=== PATIENT | female | born 1970 | race Caucasian/White ===

== ENCOUNTER 2017-05-15 11:12 | Inpatient (IN) | payer OTHER ==
[~2017-05-15] VITALS: Ht 170.2 cm; Wt 71.4 kg
[~2017-05-15 11:12] MED LIST: ACEBUTCAFT PO; ALBU90OI; ALBU90OI INH; ALBU90OI61; AMLO10 PO; AMLO5 PO; AMOCLA875 PO; ANTOXYBENA AD; BENZ100A PO; Bactrim Ds Tab1 EACH PO; CEPH500 PO; CIPR250 PO; CIPR500 PO; CLON.1 PO; CLON.5 PO; CODACE30 PO; CODBUTACEC PO; CRUTCH3 USE; CYCL10 PO; Clonazepam0.5 MG; DIPH50 PO; DOCU100 PO; ERGO50000; FAMO20; FLUC150A PO; FLUO10; FLUOXETINE; FLUSAL2505; GABA100 PO; GABA300 PO; GI COCKTAIL PO; HUMALOG; HYDACE10B PO; HYDACE5 PO; HYDACE7.5; HYDR1TAB94 PO; IBUP400 PO; IBUP800; INS70/30I SC; INSDET100; INSDET100 SC; INSDET100 SQ; INSR10I SC; INSU100I6; INSUASPI; INSUASPI SC; INSUASPI UD; INSULANI; INSULANPEN SQ; LIDO5TP; LIDO5TP TOP; LISI20; LITH300C PO; LORA1 PO; MAGCIT300 PO; MEROPENEM1000 MG IV; METCAR500 PO; METO10 PO; METO25 PO; METO5A; METPRE4DP PO; MONT10T; MUPI2TO TOP; Magnesium500 M1 PO; Monodox100 MG PO; NAPR220 PO; NAPR550 PO; NICO14TP TOP; Novolog Fl100 UNIT/1 SQ; OMEP20ER; OMEP20ER PO; ONDA4 PO; ONDA4ODT MM; OXCA300; OXYACE5T PO; OXYACE7.5T PO; OXYC5 PO; PAXIL; PENVK500 PO; PROC10 PO; PROM25 PO; Prozac40 MG PO; RANI150 PO; RXCODACET PO; RXONDA4ODT MM; RXTRAM50 PO; SULTRIDS; SYMBAX PO; TRAM50 PO; WARF5 PO; XARELTO10 MG; XARELTO20 MG PO; ZOLP5 PO
[2017-05-15 11:30] LABS: Chloride (POC) 91 mmol/L (98-108); Creatinine (POC) 0.8 mg/dL (0.6-1.0); Glucose (ISTAT POC) 676 mg/dL (70-99); Hemoglobin (POC) 12.6 g/dL (12.0-16.0); Potassium (POC) 5.6 mmol/L (3.5-5.5); Sodium (POC) 123 mmol/L (135-148); Total CO2 (POC) 19 mmol/L (21-32)
[2017-05-15 11:32] LABS: Base Excess Venous -10.9 mmol/L; Bicarbonate Venous 16.4 mmol/L (24.0-30.0); PCO2 Venous 39.4 mmHg (38-42); PO2 Venous 104 mmHg (38-42); pH Blood Venous 7.23 (7.34-7.37)
[2017-05-15 11:37] LABS: BASOPHILS ABSOLUTE AUTO 0.11 K/mm3 (0.00-0.23); BASOPHILS PERCENT AUTO 1 % (0-2); EOSINOPHILS ABSOLUTE AUTO 0.49 K/mm3 (0.00-0.68); EOSINOPHILS PERCENT AUTO 4 % (0-6); Hematocrit 35.3 % (33.0-51.0); IMMATURE GRAN ABSOLUTE AUTO 0.06 K/mm3 (0.00-0.10); IMMATURE GRAN PERCENT AUTO 1 % (0-1); LYMPHOCYTES ABSOLUTE AUTO 1.74 K/mm3 (0.84-5.20); LYMPHOCYTES PERCENT AUTO 14 % (21-46); MONOCYTES ABSOLUTE AUTO 0.39 K/mm3 (0.16-1.47); MONOCYTES PERCENT AUTO 3 % (4-13); Mean Corpuscular HGB 30.3 pg (26.0-34.0); Mean Corpuscular Volume 89 fL (80-100); Mean Platelet Volume 10.7 fL (9.1-12.4); NEUTROPHILS ABSOLUTE AUTO 9.31 K/mm3 (1.96-9.15); NEUTROPHILS PERCENT AUTO 77 % (41-73); Platelet Count 270 K/mm3 (150-400); RDW Standard Deviation 42.3 fL (35.1-46.3); Red Blood Cell Count 3.96 M/mm3 (3.80-5.20)
[2017-05-15 12:46] LABS: Alanine Aminotransfer (ALT/SGP 82 U/L (12-78); Albumin, Blood 3.1 g/dL (3.4-5.0); Albumin/Globulin Ratio 0.8 (0.8-1.8); Alk Phos 107 U/L (50-136); Anion Gap 16 mmol/L (6-16); Aspartate Aminotrans (AST/SGOT 26 U/L (12-37); Beta-hydroxybutyrate 58.3 mg/dL (0.2-2.8); Bilirubin, Total 0.8 mg/dL (0.1-1.0); Blood Urea Nitrogen 28 mg/dL (8-24); Bun/Creatinine Ratio 41.1 (12.0-20.0); CO2, Blood 18 mmol/L (21-32); Chloride, Blood 90 mmol/L (98-108); Creatinine, Blood 0.68 mg/dL (0.40-1.00); Globulin, Blood 3.7 g/dL (2.2-4.0); Glomerular Filtration Rate >60 (60-); Glucose, Blood 691 mg/dL (70-99); Potassium, Blood 5.6 mmol/L (3.5-5.5); Sodium, Blood 124 mmol/L (136-145); Total Protein, Blood 6.8 g/dL (6.4-8.2)
[2017-05-15 15:15] LABS: Anion Gap 17 mmol/L (6-16); Blood Urea Nitrogen 33 mg/dL (8-24); Bun/Creatinine Ratio 42.7 (12.0-20.0); CO2, Blood 15 mmol/L (21-32); Calcium, Blood 8.9 mg/dL (8.5-10.1); Chloride, Blood 94 mmol/L (98-108); Creatinine, Blood 0.77 mg/dL (0.40-1.00); Glomerular Filtration Rate >60 (60-); Glucose, Blood 646 mg/dL (70-99); Potassium, Blood 4.9 mmol/L (3.5-5.5); Sodium, Blood 126 mmol/L (136-145)
[2017-05-15] MEDS ORDERED: Novolin R100 UNIT/M SC (15:48)
[2017-05-15 16:38] LABS: Influenza A Negative (NEGATIVE); Influenza B Negative (NEGATIVE)
[2017-05-15 16:55] LABS: Glucose (ISTAT POC) 681 mg/dL (70-99)
[2017-05-15 17:35] LABS: Glucose (ISTAT POC) 630 mg/dL (70-99)
[2017-05-15 17:46] LABS: Bilirubin, Urine Neg (Neg); Blood, Urine Neg (Neg); Glucose Qualitative, Urine 4+ (Neg); Ketones, Urine 2+ (Neg); Leukocyte Esterase, Urine Neg (Neg); Nitrite, Urine Neg (Neg); Protein, Urine Neg (Neg); Specific Gravity, Urine 1.015 (1.003-1.022); Urobilinogen, Urine NORM (Normal)
[2017-05-15 17:58] LABS: Appearance, Urine Hazy (Clear); Color, Urine Pale Yellow (P-Yellow)
[2017-05-15 17:59] LABS: Amorphous Heavy (0-Heavy); Bacteria Mod /hpf; Red Blood Cells, Urine Not Seen /hpf (0-2); Squamous Epithelial Cells Few /hpf (Few); White Blood Cells, Urine Not Seen /hpf (0-5)
[2017-05-15 18:40] LABS: Glucose (ISTAT POC) 560 mg/dL (70-99)
[2017-05-15 19:36] LABS: Anion Gap 12 mmol/L (6-16); Blood Urea Nitrogen 36 mg/dL (8-24); Bun/Creatinine Ratio 42.1 (12.0-20.0); CO2, Blood 19 mmol/L (21-32); Calcium, Blood 8.4 mg/dL (8.5-10.1); Chloride, Blood 97 mmol/L (98-108); Creatinine, Blood 0.86 mg/dL (0.40-1.00); Glomerular Filtration Rate >60 (60-); Glucose, Blood 506 mg/dL (70-99); Potassium, Blood 4.3 mmol/L (3.5-5.5); Sodium, Blood 128 mmol/L (136-145)
[2017-05-15 21:40] LABS: Glucose (ISTAT POC) 469 mg/dL (70-99)
[2017-05-15 23:50] LABS: Anion Gap 7 mmol/L (6-16); Blood Urea Nitrogen 35 mg/dL (8-24); Bun/Creatinine Ratio 44.5 (12.0-20.0); CO2, Blood 23 mmol/L (21-32); Chloride, Blood 102 mmol/L (98-108); Creatinine, Blood 0.79 mg/dL (0.40-1.00); Glomerular Filtration Rate >60 (60-); Glucose, Blood 249 mg/dL (70-99); Potassium, Blood 4.3 mmol/L (3.5-5.5); Sodium, Blood 132 mmol/L (136-145)
[2017-05-16 03:52] LABS: BASOPHILS ABSOLUTE AUTO 0.06 K/mm3 (0.00-0.23); BASOPHILS PERCENT AUTO 1 % (0-2); EOSINOPHILS ABSOLUTE AUTO 0.72 K/mm3 (0.00-0.68); EOSINOPHILS PERCENT AUTO 9 % (0-6); Hematocrit 29.1 % (33.0-51.0); Hemoglobin 9.8 g/dL (11.5-16.0); IMMATURE GRAN ABSOLUTE AUTO 0.03 K/mm3 (0.00-0.10); IMMATURE GRAN PERCENT AUTO 0 % (0-1); LYMPHOCYTES ABSOLUTE AUTO 1.96 K/mm3 (0.84-5.20); LYMPHOCYTES PERCENT AUTO 24 % (21-46); MONOCYTES ABSOLUTE AUTO 0.48 K/mm3 (0.16-1.47); MONOCYTES PERCENT AUTO 6 % (4-13); Mean Corpuscular HGB Conc 33.7 g/dL (31.5-36.5); Mean Corpuscular Volume 89 fL (80-100); Mean Platelet Volume 9.6 fL (9.1-12.4); NEUTROPHILS ABSOLUTE AUTO 4.91 K/mm3 (1.96-9.15); NEUTROPHILS PERCENT AUTO 60 % (41-73); Platelet Count 206 K/mm3 (150-400); RDW Coefficient Variation 13.4 % (11.7-14.2); Red Blood Cell Count 3.27 M/mm3 (3.80-5.20); White Blood Cell Count 8.16 K/mm3 (4.00-11.30)
[2017-05-16 04:13] LABS: Anion Gap 4 mmol/L (6-16); Blood Urea Nitrogen 36 mg/dL (8-24); Bun/Creatinine Ratio 45.4 (12.0-20.0); CO2, Blood 25 mmol/L (21-32); Calcium, Blood 7.7 mg/dL (8.5-10.1); Chloride, Blood 106 mmol/L (98-108); Creatinine, Blood 0.79 mg/dL (0.40-1.00); Glomerular Filtration Rate >60 (60-); Glucose, Blood 101 mg/dL (70-99); Potassium, Blood 4.1 mmol/L (3.5-5.5); Sodium, Blood 135 mmol/L (136-145)
[2017-05-17 10:06] LABS: Albumin, Blood 2.8 g/dL (3.4-5.0); Anion Gap 9 mmol/L (6-16); Blood Urea Nitrogen 22 mg/dL (8-24); Bun/Creatinine Ratio 36.3 (12.0-20.0); CO2, Blood 24 mmol/L (21-32); Calcium, Blood 8.7 mg/dL (8.5-10.1); Chloride, Blood 102 mmol/L (98-108); Creatinine, Blood 0.61 mg/dL (0.40-1.00); Glomerular Filtration Rate >60 (60-); Glucose, Blood 401 mg/dL (70-99); Magnesium, Blood 1.5 mg/dL (1.6-2.4); Phosphorus, Blood 3.4 mg/dL (2.5-4.9); Potassium, Blood 4.4 mmol/L (3.5-5.5); Sodium, Blood 135 mmol/L (136-145)
[2017-05-18 06:07] LABS: Anion Gap 8 mmol/L (6-16); Blood Urea Nitrogen 21 mg/dL (8-24); CO2, Blood 24 mmol/L (21-32); Calcium, Blood 8.4 mg/dL (8.5-10.1); Chloride, Blood 99 mmol/L (98-108); Glomerular Filtration Rate >60 (60-); Glucose, Blood 406 mg/dL (70-99); Potassium, Blood 4.3 mmol/L (3.5-5.5); Sodium, Blood 131 mmol/L (136-145)
[2017-05-18] MEDS ORDERED: Novolog100 UNIT/2 SC ×2 (12:01→12:02)
[2017-05-18] MEDS ORDERED: AZIT500 PO (12:03)
[2017-05-18] MEDS ORDERED: CEFU500T30 PO (12:03)
[2017-05-18] MEDS ORDERED: INSDET100 SC (12:03)
[2017-05-18] MEDS ORDERED: SACC250C PO (12:04)
[2017-05-18] MEDS ORDERED: NITR100CA PO (12:04)
[2017-05-18 13:23] LABS: Glucose, Blood 499 mg/dL (70-99)
== END 2017-05-18 14:24 | disposition home or self-care (01) | DRG 871 ==
LOC: ER 11:12 → ICUW 13:59 → MEDS 15:35 → ENPENDDIS 05-18 11:10 → MEDS 05-18 14:24
PROVIDERS: Emergency Medicine; Internal Medicine
DX: A41.9 Sepsis, unspecified organism (principal); E11.10 Type 2 diabetes mellitus with ketoacidosis without coma; E11.51 Type 2 diabetes mellitus with diabetic peripheral angiopathy without gangrene; K31.84 Gastroparesis; E87.1 Hypo-osmolality and hyponatremia; E11.43 Type 2 diabetes mellitus with diabetic autonomic (poly)neuropathy; E83.42 Hypomagnesemia; N39.0 Urinary tract infection, site not specified; E87.5 Hyperkalemia; R65.20 Severe sepsis without septic shock; Z89.512 Acquired absence of left leg below knee; F31.9 Bipolar disorder, unspecified; F17.210 Nicotine dependence, cigarettes, uncomplicated; J40 Bronchitis, not specified as acute or chronic
CPT/HCPCS: 36415; 51702; 71045; 80047; 80048; 80053; 80069; 81001; 82010; 82803; 82947; 83036; 83605; 83735; 85014; 85025; 87077; 87086; 87186; 87804; 93005; 93010; 94760; 96361; 96374; 99285; C1751; C9113; J0456; J0696; J1170; J1650; J1815; J1817; J2405; J3475; J7030; J7042; J7050